=== PATIENT | male | born 1995 | race African-American/Black ===

== ENCOUNTER 2018-02-08 13:50 | Emergency (ER) | payer OTHER ==
[~2018-02-08] VITALS: Ht 180.3 cm; Wt 93.0 kg
[~2018-02-08 13:50] MED LIST: ABILIFY10 MG PO; ACETAMINOPHEN-1 EAC1 PO; DIMENHYDRINATE50 MG PO; LITHIUM CARBON300 M7 PO; MEDROLDOSEPACK PO; NORCO 5-325 TA1 EACH PO; PROAIR HFA8.5 GM INH; TESSALON PERLE100 MG PO; VALTREX1000 MG PO; ZPAK PO
[2018-02-08] MEDS ORDERED: TRAMADOL 50 MG50 MG PO ×3 (15:33→15:43)
[2018-02-08 15:50] VITALS: BP 130/77
== END 2018-02-08 15:53 | disposition home or self-care (01) ==
LOC: M.ERS 13:50
DX: M54.5 Low back pain (principal); F31.9 Bipolar disorder, unspecified; F17.210 Nicotine dependence, cigarettes, uncomplicated